=== PATIENT | female | born 1990 | race Caucasian/White ===

== ENCOUNTER 2016-04-22 20:43 | Emergency (ER) | payer OTHER ==
[~2016-04-22] VITALS: Ht 185.4 cm; Wt 131.8 kg
[~2016-04-22 20:43] MED LIST: AZIT250T4 PO; BENZ-12 PO; BENZ200C44 PO
[2016-04-22 20:46] VITALS: BP 135/89; PULSE 85; RESP 24; O2SAT 99
--- NOTE | 2016-04-22 21:02 | ED.REPORT ---
HPI-Chest Pain Under 40 Date of Service Apr 22, 2016 ED Provider: Carlie Larson MD The patient is a 25 year old female with history of asthma and pneumonia who presents to the emergency department complaining of left-sided rib pain that began yesterday. She describes the pain as "stabbing." Her pain is worse today. She has also noticed shortness of breath, pleuritic pain, and a productive cough x 1 week. She feels like she is unable to take deep breaths due to the pain. She previously fractured a rib on the right side but she denies any known new injuries. Her current pain feels similar to when she previously fractured a rib. She was seen in the walk-in clinic on Tuesday for a cough and was diagnosed with bronchitis. She denies fever, chills, hemoptysis, lower extremity swelling, nausea, vomiting or diarrhea. She denies any recent long periods of immobilization. She has a copper IUD in place. She quit smoking tobacco 1.5 months ago after smoking for about 2 years. Nursing Notes Stated Complaint: RIB PAIN Chief Complaint: Respiratory Complaints Nursing Notes Reviewed: Yes Allergies: Coded Allergies: No Known Allergies (Unverified Allergy, Unknown, 12/18/14) General Time Seen by MD: 20:56 Chief Complaint Other (rib pain) Hx Obtained From: Patient Arrived By: Walk-in Sudden in Onset?: Yes Onset Occurred: Yesterday Symptom Duration: Since onset Location: : Chest left Quality: Painful, Pleuritic Radiation: : Does not radiate Migration/Movement: Reports: None Severity: Current: Moderate Severity: Maximum: Severe Recent Healthcare: No recent doctor visit, No recent hospitalization Similar Sx Previous: No Risk Factors PERC Rule PERC Result: All PERC criteria "No", PERC rule satisfied Well's Criteria for PE Well's PE Score: 0-2 pts (low risk 3.6%) Past Medical History Past Medical History Pneumonia Reports: Asthma Past Surgical History none reported Family History Noncontributory Smoking History Former Smoker (quit 1.5 months ago after smoking for 2 years) Social History Alcohol Use: Denies alcohol use Drug Use: Denies drug use Other Social History: Local resident Ambulatory Status Independent Review of Systems Constitutional: Denies: Chills, Fever Respiratory: Reports: Prod cough, white, Shortness of breath, Denies: Hemoptysis Cardiovascular: Reports: Chest pain (rib pain) GI: Denies: Diarrhea, Nausea, Vomiting Musculoskeletal: Denies: Extremity swelling Complete sys rev & neg: except as marked. Physical Exam Initial Vital Signs Vital Signs (First) Date Time Temp Pulse Resp B/P Pulse Ox O2 Delivery O2 Flow Rate FiO2 04/22/16 20:46 36.8 85 24 135/89 99 04/22/16 22:14 Room Air Initial VS: Reviewed Head / Eyes: Atraumatic, Normocephalic, PERRL ENT: Mucous membranes moist, Conjunctiva normal, No scleral icterus Neck: Supple, Non-tender, Full range of motion Abdomen / GI: Soft, Non-tender, No guarding, No rebound, No distention Lymphatic: No lymphadenopathy Extremities: Vascular intact, Neuro intact, No swelling, No tenderness Skin: Warm, Dry, No cyanosis Neurologic: Alert, Oriented, Nonfocal Psychiatric: Mood/affect normal, Behavior normal, Normal thought content General/Constitutional: Awake, Alert, Cooperative Appearance / Presentation: Positive: Uncomfortable Respiratory / Chest: Breath sounds NL, Breath sounds = bilat, No respiratory distress, No rales, No rhonchi, No wheezing She has point tenderness along approximately ribs 6-9 on the left. No obvious trauma. No rash. Cardiovascular: Heart rate NL, Regular rhythm, Heart sounds NL, No gallop, No murmurs, No rubs, Peripheral circulation NL, Pulses = bilaterally, No gross BP differential Interpretation & Diagnostics Lab Results Interpretation Test 04/22/16 21:20 Hold Urine Received (Received) X-Ray Chest Interpretation Chest Xray Interpretation: IMPRESSION: No abnormality is seen in PA chest or left ribs. Cause of pain is not identified. Dictated by: Joe Andrea M.D. on 04/22/2016 at 21:28 Interpretation / Wet Read by: Interpret - Radiologist Re-Eval/Medical Decision Med Decision/Clinical Course 25-year-old female with no past medical history, who is not on any oral anticoagulants here with chest pain which is worse with movements. Differential diagnosis includes but is not limited to cracked rib versus pneumonia versus PE versus pre-herpetic neuralgia. Patient has no rash at this time, and I do not feel she requires prophylactic treatment for shingles. She is PERC negative, and at this time, I do not feel she requires workup for PE. Her chest x-ray was unremarkable. I have given her an incentive spirometer and [place] for pain. She is amenable to discharge at this time and has been given very strict return precautions. Source of Hx: Old records Re-Evaluation/Progress : Time of Eval: 21:38 Re-Evaluation/Progress Note: Discussed plan for discharge after chest x-ray and respiratory therapist consult. All questions were addressed. Counseled Regarding: Diagnosis, Need for follow-up, When/why to return to ED Discharge & Departure Primary Impression: Rib pain on left side Additional Impression: Hypertension Hypertension type: unspecified secondary hypertension Hypertension goal: unspecified goal Qualified Code: I15.9 - Secondary hypertension, unspecified Disposition: Home Discharge Condition All VS Reviewed: Yes Condition: Stable Patient Instructions: Rib Fracture (ED) Additional Instructions: Thank you for entrusting us with your care today. There is no obvious rib fracture seen on x-ray but this does not mean you did not fracture a rib. I have written you a prescription for pain medication to get you through the next few days. Use the spirometer as directed by the respiratory therapist. Followup with your regular doctor next week for re-evaluation. Your blood pressure today in the emergency department was high. You should discuss this with your regular doctor. Please return to the emergency department if you develop increased pain , difficulty breathing, fever, chills, vomiting, or any other new or concerning symptoms. Referrals: Efren Staton MD (PCP) [place] Attestation Portions of this note were transcribed by Amber Acosta. I, Dr. Larson personally performed the history, physical exam and medical decision-making; I reviewed and confirmed the accuracy of the information in the transcribed note. Signed by: Tmomy Tompkins, 04/22/2016 and 2206. copies to: Efren Staton MD, Rebecca A MD Apr 22, 2016 21:02 Amber Acosta Apr 22, 2016 21:09
[2016-04-22] MEDS ORDERED: METF500T4 PO (21:31)
[2016-04-22] MEDS ORDERED: HYDR25TA4 PO (21:31)
[2016-04-22] MEDS ORDERED: LISI2.5T PO (21:31)
--- NOTE | 2016-04-22 21:31 | DRSVH ---
PROCEDURE: X-RAY LEFT RIBS INCLUDEING PA CHEST, MINUMUM THREE VIEWS ([id number]) INDICATIONS: Rib pain TECHNIQUE: 2 views of the left ribs were acquired, along with a single view chest. COMPARISON: None. FINDINGS: Surgical changes and devices: None. Bones and chest wall: No fractures or dislocations. No suspicious bony lesions. Overlying soft tis sues appear unremarkable. Lungs and pleura: No pleural effusions or pneumothorax. Lungs appear clear. Mediastinum: Mediastinal contours appear normal. Heart size is normal. IMPRESSION: No abnormality is seen in PA chest or left ribs. Cause of pain is not identified. Dictated by: Joe Andrea M.D. on 04/22/2016 at 21:28 Approved by: Joe Andrea M.D. on 04/22/2016 at 21:29
[2016-04-22] MEDS ORDERED: _HYDROcodone/APAP 5-325 mg Tablet PO PRN (21:40)
[2016-04-22 22:14] VITALS: BP 141/72; PULSE 88; RESP 20; O2SAT 95
== END 2016-04-22 22:15 | disposition home or self-care (01) ==
LOC: SED 20:43
DX: R07.81 Pleurodynia (principal); I10 Essential (primary) hypertension; R06.02 Shortness of breath; R05 Cough; J45.909 Unspecified asthma, uncomplicated; Z87.828 Personal history of other (healed) physical injury and trauma; Z97.5 Presence of (intrauterine) contraceptive device; Z87.01 Personal history of pneumonia (recurrent); Z87.891 Personal history of nicotine dependence